=== PATIENT | female | born 1970 | race Caucasian/White ===

== ENCOUNTER 2017-04-18 19:02 | Emergency (ER) | payer OTHER ==
[~2017-04-18] VITALS: Ht 167.6 cm; Wt 142.0 kg
[2017-04-18 20:20] VITALS: BP 137/94
== END 2017-04-18 20:20 | disposition home or self-care (01) ==
LOC: ED 19:02
DX: T81.33XA Disruption of traumatic injury wound repair, initial encounter (principal); Z79.899 Other long term (current) drug therapy